=== PATIENT | female | born 1985 | race Caucasian/White ===

== ENCOUNTER 2020-03-08 09:48 | Outpatient (REF) | payer MEDICAID, SELFPAY | END 2020-03-08 09:49 | disposition home or self-care (01) | LOC: HO.LAB 09:48 | PROVIDERS: Visit Provider Internal Medicine | DX: Z20.828 Contact with and (suspected) exposure to other viral communicable diseases (principal) | CPT/HCPCS: C9803; U0003 ==

== ENCOUNTER 2024-05-04 11:16 | Emergency (ER) | payer OTHER, SELFPAY ==
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
[2024-05-04 11:21] VITALS: BP 154/83; PULSE 91; RESP 16; TEMP 36.9; O2SAT 100; BMI 40.2
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
[2024-05-04 14:59] VITALS: BP 154/83; PULSE 91; RESP 16; TEMP 36.9; O2SAT 100
== END 2024-05-04 15:00 | disposition home or self-care (01) ==
PROVIDERS: Emergency Provider Emergency Medicine
DX: S29.012A Strain of muscle and tendon of back wall of thorax, initial encounter (principal); M54.6 Pain in thoracic spine; V43.52XA Car driver injured in collision with other type car in traffic accident, initial encounter; Y93.9 Activity, unspecified; Y92.415 Exit ramp or entrance ramp of street or highway as the place of occurrence of the external cause; Y99.8 Other external cause status
CPT/HCPCS: 72070; 99282; 99283

== ENCOUNTER → 2024-05-04 11:24 | Outpatient (BNV) | payer OTHER, SELFPAY | PROVIDERS: Visit Provider Radiology Diagnostic Radiology | DX: M54.6 Pain in thoracic spine (principal); Z04.3 Encounter for examination and observation following other accident; M41.35 Thoracogenic scoliosis, thoracolumbar region | CPT/HCPCS: 72070 ==